=== PATIENT | female | born 1980 | race Caucasian/White ===

== ENCOUNTER 2022-02-12 16:26 | Emergency (ER) | payer SELFPAY ==
[~2022-02-12] VITALS: Ht 175.3 cm; Wt 69.5 kg
[2022-02-12 16:59] VITALS: BP 126/94
[2022-02-12] MEDS ORDERED: IBUPROFEN 800 MG TAB PO ONE (17:30)
[2022-02-12 17:46] LABS: Urine Bacteria FEW /hpf (None Seen); Urine Blood 1+ /uL (Negative); Urine Mucus FEW (None Seen); Urine WBC 51 /hpf (0 - 5)
[2022-02-12] MEDS ORDERED: SULFAMETHOX W/TRIMETH(800/160MG) DS TAB PO ONE (18:00)
[2022-02-12] MEDS ORDERED: IBUP800T26 PO (18:14)
[2022-02-12] MEDS ORDERED: BACDST PO (18:14)
== END 2022-02-12 18:20 | disposition home or self-care (01) ==
LOC: ER 16:28
DX: N39.0 Urinary tract infection, site not specified (principal); K59.00 Constipation, unspecified; F17.210 Nicotine dependence, cigarettes, uncomplicated
CPT/HCPCS: 74018; 81001; 81025; 87210